=== PATIENT | male | born 1965 | race Caucasian/White ===

== ENCOUNTER 2016-09-05 22:01 | Observation (INO) | payer MEDICARE ==
[2016-09-05] MEDS ORDERED: MORPHINE SULFATE 2 MG INJ IV ONE (22:20)
--- NOTE | 2016-09-05 22:20 | ERPHSYRPT ---
- History of Present Illness Time Seen by Provider: 09/05/16 22:16 Historian: patient Exam Limitations: no limitations Physician History: The patient is a 50-year-old male who comes in complaining of chest pain for the last 40 minutes. 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 He did not bring his nitroglycerin with him. He has a cardiac history including a cardiac pacemaker placement. He denies cardiac stent or CABG. He thinks he may of had a mild heart attack at one time. Tonight he was not doing anything in particular when he developed left-sided chest pain with radiation down his left arm. The chest pain is sharp like a knife. He was nauseated and short of breath. He denies sweating. He has a past medical history of a recent left in encarotidectomy, cardiac pacemaker placement, diabetes, hypertension, stroke, and high cholesterol. Timing/Duration: hour(s) (40 min), sudden Activities at Onset: none Quality: sharpness, stabbing Location: substernal Chest Pain Radiation: arm Severity of Pain-Max: severe Severity of Pain-Current: severe Modifying Factors: Improves With: nothing Associated Symptoms: nausea, shortness of breath Prior Chest Pain/Cardiac Workup: angina, heart attack Nitro Today/Relief: no nitro taken today Aspirin Treatment Today: no aspirin today Allergies/Adverse Reactions: cephalexin [From Keflex] Allergy (Verified 09/05/16 22:18) Penicillins Allergy (Verified 09/05/16 22:18) Difficulty Breathing ibuprofen Adverse Reaction (Verified 09/05/16 22:18) ketorolac [From Toradol] Adverse Reaction (Verified 09/05/16 22:18) Home Medications: Clonazepam [Klonopin] 1 mg PO TID 09/05/16 [History] Clopidogrel Bisulfate 75 mg [PLAVIX 75 MG Tablet] 75 mg PO DAILY 09/05/16 [History] Fenofibrate,Micronized 145 mg* [Tricor 145 MG] 145 mg PO DAILY 09/05/16 [ History] Fenofibrate,Micronized [Fenofibrate] mg PO DAILY 09/05/16 [History] Metoprolol Tartrate 25 mg [Lopressor 25MG Tab] 25 mg PO DAILY 09/05/16 [ History] Trazodone HCl [Desyrel] 150 mg PO HS 09/05/16 [History] - Review of Systems Constitutional: No Fever, No Chills Eyes: No Symptoms Ears, Nose, & Throat: No Symptoms Respiratory: Dyspnea Cardiac: Chest Pain Abdominal/Gastrointestinal: Nausea Genitourinary Symptoms: No Dysuria Musculoskeletal: No Back Pain, No Neck Pain Skin: No Rash Neurological: No Dizziness, No Focal Weakness, No Sensory Changes Psychological: No Symptoms Endocrine: No Symptoms Hematologic/Lymphatic: No Symptoms Immunological/Allergic: No Symptoms All Other Systems: Reviewed and Negative - Nursing Vital Signs Temperature: 98.3 F Temperature Source: Oral Pulse Rate: 97 Respiratory Rate: 18 Pain Intensity: 8 - Physical Exam General Appearance: mild distress Eye Exam: PERRL/EOMI, eyes nml inspection Ears, Nose, Throat Exam: normal ENT inspection, moist mucous membranes Neck Exam: normal inspection, non-tender, supple, full range of motion Respiratory Exam: normal breath sounds, lungs clear, No respiratory distress Cardiovascular Exam: regular rate/rhythm, normal heart sounds Gastrointestinal/Abdomen Exam: soft, No tenderness, No mass Rectal Exam: not done Back Exam: normal inspection, No CVA tenderness, No vertebral tenderness Extremity Exam: normal inspection, normal range of motion Neurologic Exam: alert, oriented x 3, cooperative, normal mood/affect, sensation nml, No motor deficits Skin Exam: normal color, warm, dry SpO2 Interpretation: normal SpO2: 94 Oxygen Delivery: Nasal Cannula - Course EKG Interpreted by Me: RATE, Sinus Rhythm, NORMAL AXIS, NORMAL INTERVALS, NORMAL QRS, NORMAL ST-T - Radiology Exams Chest X-ray Interpretation: Interpreted by me, Negative, Other (No acute chest. Dual lead pacer in place.) Ordered Tests: Active Orders 24 hr Category Date Time Status Dining Room Manager STAT Care 09/05/16 22:22 Active EKG-ER Only STAT Care 09/05/16 22:20 Active IV Insertion STAT Care 09/05/16 22:20 Active Oxygen-ED Only NASAL CANNULA 2 lpm Care 09/05/16 22:22 Active Pulse Oximetry (ED) STAT Care 09/05/16 22:22 Active CHEST 2 VIEWS (PA AND LAT) Stat Exams 09/05/16 22:21 Taken CBC W DIFF Stat Lab 09/05/16 22:32 Completed CMP Stat Lab 09/05/16 22:32 Completed TROPONIN Stat Lab 09/05/16 22:32 Completed Medication Summary Discontinued Medications Generic Name Dose Route Start Last Admin Trade Name Maria Ines PRRaul Reason Stop Dose Admin Morphine Sulfate 2 mg 09/05/16 22:20 09/05/16 22:31 Morphine Sulfate 2 Mg Inj IV 09/05/16 22:21 2 mg STAT ONE Administration Morphine Sulfate Confirm 09/05/16 22:30 Morphine Sulfate 2 Mg Inj Administered 09/05/16 22:31 Dose 2 mg .ROUTE .STK-MED ONE Nitroglycerin 0.4 mg 09/05/16 22:22 09/05/16 22:31 Nitrostat 0.4 Mg (Ed) SL 09/05/16 22:23 0.4 mg STAT ONE Administration Nitroglycerin Confirm 09/05/16 22:30 Nitrostat 0.4 Mg (Ed) Administered 09/05/16 22:31 Dose 0.4 mg SL .STK-MED ONE Nitroglycerin 0.4 mg 09/05/16 23:04 09/05/16 23:07 Nitrostat 0.4 Mg (Ed) SL 09/05/16 23:05 0.4 mg STAT ONE Administration Nitroglycerin Confirm 09/05/16 23:05 Nitrostat 0.4 Mg (Ed) Administered 09/05/16 23:06 Dose 0.4 mg SL .STK-MED ONE Nitroglycerin 0.4 mg 09/05/16 23:28 09/05/16 23:32 Nitrostat 0.4 Mg (Ed) SL 09/05/16 23:29 0.4 mg STAT ONE Administration Lab/Rad Data: Laboratory Result Diagrams 09/05/16 22:32 09/05/16 22:32 Laboratory Results 09/05/16 09/05/16 Range/Units 22:32 22:32 WBC 7.2 (4.0-10.5) K/mm3 RBC 4.25 (4.1-5.6) M/mm3 Hgb 12.4 L (12.5-18.0) gm/dl Hct 37.1 L (42-50) % MCV 87.3 (78-100) fl MCH 29.1 (26-32) pg MCHC 33.4 (32-36) g/dl RDW 13.9 (11.5-14.0) % Plt Count 170 (150-450) K/mm3 MPV 8.4 (6-9.5) fl Gran % 66.0 (36.0-66.0) % Lymphocytes % 25.0 (24.0-44.0) % Monocytes % 6.9 (0.0-12.0) % Eosinophils % 1.8 (0.00-5.0) % Basophils % 0.3 (0.0-0.4) % Basophils # 0.02 (0-0.4) Sodium 140 (136-145) mEq/L Potassium 3.8 (3.5-5.1) mEq/L Chloride 104 (98-107) mEq/L Carbon Dioxide 26.5 (21-32) mEq/L Anion Gap 13.3 (5-15) MEQ/L BUN 18 (9-20) mg/dL Creatinine 1.35 H (0.55-1.30) mg/dl Estimated GFR 60 ML/MIN Glucose 112 H (70-110) MG/DL Calcium 9.6 (8.5-10.1) mg/dL Total Bilirubin 0.3 (0.2-1.0) mg/dL AST 22 (15-37) U/L ALT 39 (12-78) U/L Alkaline Phosphatase 80 (46-116) U/L Troponin I < 0.017 (0.000-0.056) ng/ml Serum Total Protein 7.7 (6.4-8.2) gm/dL Albumin 4.0 (3.4-5.0) g/dL - Progress Progress: improved Air Movement: good Progress Note: 09/05/16 23:04 After NG 0.4 mg SL, CP down to 6 from 8 of 10. 09/05/16 23:59 After second NG, CP down to 4 from 6 of 10. After third NG, CP down to 2 from 4 of 10. Blood Culture(s) Obtained: No Antibiotics given: No Discussed with : Lexie Will see patient in: hospital (observation) Counseled pt/family regarding: lab results, diagnosis, rad results - Departure Time of Disposition: 00:00 Departure Disposition: Observation Clinical Impression: Chest pain Condition: Stable Critical Care Time: No
[2016-09-05] MEDS ORDERED: Nitrostat 0.4 MG (ED) SL ONE ×5 (22:22→23:28)
[2016-09-05] MEDS ORDERED: MORPHINE SULFATE 2 MG INJ ONE (22:30)
[2016-09-05 22:37] LABS: BASOPHIL % 0.3 % (0.0-0.4); Eosinophil % 1.8 % (0.00-5.0); Mean Cell Volume 87.3 fl (78-100); Mean Platelet Volume 8.4 fl (6-9.5); Monocytes % 6.9 % (0.0-12.0); Platelet Count 170 K/mm3 (150-450); Red Blood Count 4.25 M/mm3 (4.1-5.6); Red Cell Distribution Width 13.9 % (11.5-14.0); White Blood Count 7.2 K/mm3 (4.0-10.5)
[2016-09-05 22:38] LABS: Mean Corpuscular Hemoglobin 29.1 pg (26-32)
[2016-09-05 23:01] LABS: ALKALINE PHOSPHATASE 80 U/L (46-116); ANION GAP 13.3 MEQ/L (5-15); BILIRUBIN,TOTAL 0.3 mg/dL (0.2-1.0); BLOOD UREA NITROGEN 18 mg/dL (9-20); CHLORIDE 104 mEq/L (98-107); Carbon Dioxide 26.5 mEq/L (21-32); Glucose 112 MG/DL (70-110); Potassium 3.8 mEq/L (3.5-5.1); SGOT/AST 22 U/L (15-37); SGPT/ALT 39 U/L (12-78); SODIUM 140 mEq/L (136-145); TROPONIN < 0.017 ng/ml (0.000-0.056); Total Protein 7.7 gm/dL (6.4-8.2)
[2016-09-06] MEDS ORDERED: Nitrostat 0.4 MG (ED) SL ONE (01:13)
[2016-09-06] MEDS ORDERED: Senokot-S Tablet PO PRN (01:52)
[2016-09-06] MEDS ORDERED: MAALOX ES 30 ML UNIT DOSE PO PRN (01:52)
[2016-09-06] MEDS ORDERED: TYLENOL 325 MG PO PRN (01:52)
[2016-09-06] MEDS ORDERED: MILK OF MAGNESIA 30 ML PO PRN (01:52)
[2016-09-06] MEDS ORDERED: Zofran 4 MG/2 ML VIAL IV PRN (01:52)
[2016-09-06] MEDS: MORPHINE SULFATE 2 MG INJ IV PRN ×6 (02:32→14:04)
[2016-09-06] MEDS: Nitrostat 0.4 MG Tablet SL PRN ×3 (09:14→09:26)
--- NOTE | 2016-09-06 09:34 | PCM.HP ---
History of Present Illness - Chief Complaint Chief Complaint: Chest pain rule out ACS History of Present Illness: is a 50 year old male pt from [place], [place] who was in [place] visiting friends and started having 8/10 chest pain, L sided, radiating into the L arm. He had associated SOB, diaphoresis, nausea, and palpitations. The pain went from 8 to 6, then to 4 and 2 progressively with 3 nitro in the ER. This morning about 2-3 hours ago he started again having 7/10 chest pain in the L chest wiht some numbness into the L jaw. Having some SOB and diaphoresis. He has not had any nitro. EKG without appreciable changes this morning and troponins negative x 3. D-dimer and troponin pending. Notably, he has a history of CVA wiht subsequent endarterectomy within few months. He had been told that he possibly had a "light" MS in the past, he thinks this was on the basis of an EKG. He had a heart cath 1 year ago at [facility] but did not get a stent. He did get a pacemaker at that time, he thinks due to an arrhythmia. - Review of Systems Respiratory: Short Of Breath Cardiac: Chest Pain, Palpitations Abdominal/Gastrointestinal: Nausea Neurological: Dizziness (when he gets up), Focal Weakness (R sided, since CVA) All Other Systems: Reviewed and Negative Medications & Allergies Home Medications: Home Medication List Clonazepam [Klonopin] 1 mg PO TID 09/05/16 [History Confirmed 09/05/16] Clopidogrel Bisulfate 75 mg [PLAVIX 75 MG Tablet] 75 mg PO DAILY 09/05/16 [History Confirmed 09/05/16] Fenofibrate,Micronized 145 mg* [Tricor 145 MG] 145 mg PO DAILY 09/05/16 [ History Confirmed 09/05/16] Fenofibrate,Micronized [Fenofibrate] mg PO DAILY 09/05/16 [History] Metoprolol Tartrate 25 mg [Lopressor 25MG Tab] 25 mg PO DAILY 09/05/16 [ History Confirmed 09/05/16] Trazodone HCl [Desyrel] 150 mg PO HS 09/05/16 [History Confirmed 09/05/16] Allergies/Adverse Reactions: Allergies Allergy/AdvReac Type Severity Reaction Status Date / Time cephalexin [From Keflex] Allergy Verified 09/05/16 22:18 Penicillins Allergy Difficulty Verified 09/05/16 22:18 Breathing ibuprofen AdvReac Verified 09/05/16 22:18 ketorolac [From Toradol] AdvReac Verified 09/05/16 22:18 - Past Medical History Past Medical History: Yes Neurological History: Stroke Cardiac History: Coronary Artery Disease, High Cholesterol, Hypertension, Myocardial Infarction (MS) Respiratory History: COPD Endocrine Medical History: Diabetes Type II Comment: hx of cva with rt sided weakness - Past Surgical History Past Surgical History: Yes Cardiac History: Pacemaker, Vascular Surgery GI Surgical History: Cholecystectomy Musculskeletal Surgical Hx: Orthopedic Surgery Male Surgical History: Testicular Surgery Other Surgical History: lt endarterectomy, neck fusions x2 - Social History Smoking Status: Former smoker How long have you smoked: 4 yrs Exposure to second hand smoke: No Alcohol: None Drug Use: none - Physical Exam Vital Signs: Vital Signs - 24 hr Temp Pulse Pulse Resp BP BP Pulse Ox 09/06/16 09:26 108 H 131/60 09/06/16 09:21 103 H 127/63 09/06/16 09:14 87 136/70 09/06/16 08:27 92 L 09/06/16 08:00 96 09/06/16 07:25 96 09/06/16 07:20 98.4 F 85 18 136/74 96 09/06/16 04:00 98.5 F 86 18 160/79 98 09/06/16 02:15 98 09/06/16 02:10 98.7 F 81 18 133/79 98 09/06/16 01:18 86 23 137/85 97 09/06/16 00:40 86 23 139/65 94 L 09/06/16 00:04 98.3 F 97 H 18 94 L 09/05/16 23:46 97 H 18 120/74 100 09/05/16 23:07 95 H 18 105/71 100 09/05/16 22:27 98 09/05/16 22:07 94 H 09/05/16 22:06 98.3 F 97 H 18 146/94 94 L Oxygen-Last 24 hours O2 Percentage 2 Liters = 28% O2 Percentage 2 Liters = 28% O2 Percentage 2 Liters = 28% O2 Percentage 2 Liters = 28% O2 Percentage 2 Liters = 28% O2 Percentage 2 Liters = 28% O2 Percentage 2 Liters = 28% O2 Percentage 2 Liters = 28% General Appearance: no apparent distress Neurologic Exam: alert, oriented x 3, cooperative Eye Exam: eyes nml inspection Neck Exam: normal inspection, non-tender, other (there is a firm cord palpable in L lateral neck), No lymphadenopathy Respiratory Exam: normal breath sounds, lungs clear, No crackles/rales, No rhonchi, No wheezing Cardiovascular Exam: regular rate/rhythm, normal heart sounds, No murmur Gastrointestinal/Abdomen Exam: soft, normal bowel sounds, No tenderness, No distention, No mass, No guarding, No rebound Back Exam: normal inspection, No CVA tenderness Extremity Exam: No pedal edema, No swelling Skin Exam: normal color, warm, dry, No rash Results - Labs Lab/Micro Results: Lab Results-Last 24 Hours 09/06/16 09/06/16 09/06/16 Range/Units 03:24 06:10 06:10 Troponin I < 0.017 < 0.017 (0.000-0.056) ng/ml Triglycerides 98 (30-200) mg/dL Cholesterol 101 (100-200) mg/dL LDL Cholesterol 57 (5-99) mg/dL HDL Cholesterol 24 L (35-60) mg/dL Heart Disease Risk Ratio 4.2 - Other Procedures and Tests Respiratory Therapy 09/06/16 02:17 Oxygen NASAL CANNULA 2 lpm 09/06/16 08:27 Oxygen NASAL CANNULA 2 lpm 09/07/16 05:00 EKG DAILY 09/08/16 05:00 EKG DAILY 09/09/16 05:00 EKG DAILY Assessment/Plan (1) Chest pain Current Visit: Yes Status: Acute Assessment & Plan: Concern for acute coronary syndrome vs PE vs angina. Troponins have been negative x 3 and nothing new on EKG. Another troponin is pending and will give nitro and see if it brings relief. Check d-dimer; if positive do stat CTA of the chest. If angina won't resolve, I will go ahead and speak wiht a collateral analyst in [facility] he plans to see in [place]. Code(s): R07.9 - CHEST PAIN, UNSPECIFIED (2) HTN (hypertension) Current Visit: Yes Status: Chronic Assessment & Plan: Had one elevated bp here of 160 systolic; on recheck 134 systolic. Will continue to observe. continued home meds. Code(s): I10 - ESSENTIAL (PRIMARY) HYPERTENSION (3) History of CVA (cerebrovascular accident) Current Visit: Yes Status: Chronic Code(s): Z86.73 - PRSNL HX OF TIA (TIA), AND CEREB INFRC W/O RESID DEFICITS (4) Pacemaker Current Visit: Yes Status: Chronic Code(s): Z95.0 - PRESENCE OF CARDIAC PACEMAKER
--- NOTE | 2016-09-06 09:39 | XRAY ---
Indication: Chest pain. Comparison: None PA/lateral chest hyperinflated with calcified granulomas. No focal infiltrate, consolidation, or large effusion. Heart is not enlarged. Left-sided dual-lead pacemaker. Bony thorax intact with partially visualized lower cervical fusion surgery. Impression: Nonacute chest with chronic features.
[2016-09-06] MEDS ORDERED: Ventolin Hfa MDI IH PRN (14:08)
[2016-09-06] MEDS ORDERED: Miralax Powder 17GM PACKET PO PRN (14:08)
[2016-09-06] MEDS ORDERED: HYDROXYZINE PAMOATE 50 MG PO PRN (14:08)
[2016-09-06] MEDS ORDERED: NORCO 7.5/325 MG TAB PO PRN (14:08)
[2016-09-06] MEDS ORDERED: PROVENTIL COMMON CANISTER IH PRN (14:18)
[2016-09-06] MEDS ORDERED: ATARAX 25 MG PO PRN (14:20)
[2016-09-06] MEDS ORDERED: Flomax 0.4 MG PO SCH (15:00)
[2016-09-06] MEDS ORDERED: Protonix 40MG Tablet PO SCH (15:00)
[2016-09-06] MEDS ORDERED: Seroquel 100 MG PO SCH ×2 (15:00→22:00)
[2016-09-06] MEDS ORDERED: Cymbalta 30 MG Capsule PO SCH (15:00)
[2016-09-06] MEDS ORDERED: Lopressor 25MG Tab PO SCH (15:00)
[2016-09-06] MEDS ORDERED: PLAVIX 75 MG Tablet PO SCH (15:00)
[2016-09-06] MEDS ORDERED: COGENTIN 0.5 MG PO SCH (15:00)
[2016-09-06] MEDS ORDERED: Imdur 60MG PO SCH (15:00)
[2016-09-06] MEDS: Klonopin 0.5 MG PO SCH ×2 (15:28→22:33)
[2016-09-06] MEDS: NEURONTIN 300 MG PO SCH ×2 (15:29→22:33)
[2016-09-06] MEDS: PANCRELIPASE DR 5,000 UNIT CAP PO SCH (15:34)
[2016-09-06] MEDS ORDERED: PROTEASE PO SCH (17:00)
[2016-09-06] MEDS ORDERED: LIPASE PO SCH (17:00)
[2016-09-06] MEDS ORDERED: AMYLASE PO SCH (17:00)
[2016-09-06] MEDS ORDERED: [UNRECOGNIZED DRUG - OTHER] PO SCH (17:00)
[2016-09-06] MEDS ORDERED: NITRO-BID 2% UD PACKETS TOP SCH (18:00)
[2016-09-06] MEDS ORDERED: NITRO-BID 2% UD PACKETS ONE (18:14)
[2016-09-06] MEDS ORDERED: NON-FORMULARY ITEM (Mirtazapine [Mirtazapine] 7.5 MG) PO SCH (22:00)
[2016-09-06] MEDS ORDERED: LIPITOR 40MG PO SCH (22:00)
[2016-09-06] MEDS ORDERED: ZOCOR 20MG PO SCH (22:00)
[2016-09-06] MEDS ORDERED: Tricor 145 MG PO SCH (22:00)
[2016-09-06] MEDS ORDERED: REMERON 30 MG PO SCH (22:00)
[2016-09-06] MEDS ORDERED: Desyrel 150 MG PO SCH (22:00)
[2016-09-07 00:16] VITALS: BP 107/64; PULSE 79; O2SAT 94
--- NOTE | 2016-09-07 08:30 | XRAY ---
Indication: Right-sided weakness. Multiple contiguous axial images obtained through the head without contrast. Comparison: None Ventriculosulcal pattern appears symmetric. No acute intracranial hemorrhage, abnormal extra-axial fluid collection, or mass effect. Anatomic variant for cavum septum pellucidum. Fourth ventricle is midline without hydrocephalus. Wong-white matter differentiation preserved. Bony calvarium intact. Visualized paranasal sinuses and mastoid air cells are pneumatized and clear. Impression: Negative CT head without contrast exam. CTDI 67.00
--- NOTE | 2016-09-07 08:40 | XRAY ---
Indication: Right-sided numbness and weakness. Left carotid surgery. Conventional contrast enhanced CTA neck was performed using 80 cc Isovue 370 contrast. Sagittal and coronal reformatted images obtained. Comparison: None Anatomic variant for bovine aortic arch with common origin of the brachiocephalic and left common carotid artery. Minimal descending aortic calcifications. No aneurysm/dissection. Examination of the right carotid circulation demonstrates widely patent common carotid artery. Minimal calcifications at the level of the bulb slightly extending into the origin of the internal carotid artery without critical stenosis/obstruction. Remaining internal and external carotid arteries of the neck normal in CTA appearance. Examination of the left carotid circulation demonstrates widely patent common carotid, bulb, internal carotid, and external carotid arteries. Vertebral arteries are also bilaterally patent with the right vertebral artery slightly larger in size. Visualized soft tissues demonstrates homogeneous enhancement of the thyroid gland. No pathologic cervical or supraclavicular lymphadenopathy. Lung apices demonstrates right-sided calcified granuloma. Underlying cervical spine intact with previous C5-C7 fusion surgery with intact anterior/posterior spinal hardware. There is also slight reversal of the cervical lordosis, positional versus paraspinal muscular spasm. Normal-appearing craniocervical junction. Patient is edentulous. CTA head reported separately. Impression: 1. Minimal right carotid bulb and internal carotid artery arteriosclerotic calcifications without critical stenosis/obstruction. 2. Normal CTA of the left carotid circulation. 3. Bilaterally patent vertebral arteries with the right vertebral artery dominant. 4. Previous C5-C7 fusion surgery. Cervical lordotic reversal, positional versus paraspinal spasm. CT DI 345.20
--- NOTE | 2016-09-07 08:48 | XRAY ---
Indication: Right-sided numbness and weakness. Left carotid surgery. Conventional contrast enhanced CTA head was performed using 80 cc Isovue 370 contrast. Sagittal and coronal reformatted images obtained. Comparison: None CTA neck and CT head reported separately. Distal internal carotid arteries are bilaterally symmetric without critical stenosis, obstruction, or arteriovenous malformation. Normal carotid terminus with normal branching anterior and middle cerebral arteries bilaterally. Normal CTA appearance of the anterior cerebral and middle cerebral arteries bilaterally including anterior communicating and posterior communicating arteries. Examination of the posterior circulation demonstrates patent distal vertebral arteries with the right slightly larger in size. Basilar artery is normal in course and caliber. Normal appearing basilar tip and posterior cerebral arteries bilaterally. Remaining brain is negative for abnormal enhancing intra-or extra-axial mass. Venous sinuses are negative for thrombus. Impression: 1. Normal CTA [place] of [place]. 2. No abnormal enhancing intra-/extra-axial mass. CT DI 345.20
[2016-09-07] MEDS ORDERED: QUETIAPINE FUMARATE 200 MG PO SCH (10:00)
[2016-09-07] MEDS ORDERED: BENZTROPINE MESYLATE 1 MG PO SCH (10:00)
[2016-09-07] MEDS ORDERED: NON-FORMULARY ITEM (Duloxetine Hcl [Cymbalta] 60 MG) PO SCH (10:00)
== END 2016-09-06 23:55 | disposition home or self-care (01) ==
LOC: ED 22:01 → MED SURG 09-06 01:39
PROVIDERS: ADMIT Family Medicine; ATTEND Family Medicine
DX: R07.9 Chest pain, unspecified (principal); I10 Essential (primary) hypertension; Z86.73 Personal history of transient ischemic attack (TIA), and cerebral infarction without residual deficits; Z95.0 Presence of cardiac pacemaker; Z79.899 Other long term (current) drug therapy
CPT/HCPCS: 36000; 36415; 70450; 70496; 70498; 71020; 80053; 80061; 82962; 83036; 83721; 84484; 85025; 85379; 93005; 93041; 93268; 94760; 96374; 99285; G0378; J2270; J2405; A9270-GY